=== PATIENT | female | born 1985 | race Two or more races ===

== ENCOUNTER 2018-08-21 11:43 | Observation (INO) | payer SELFPAY ==
[~2018-08-21] VITALS: Ht 161.3 cm; Wt 75.3 kg
[2018-08-21 12:27] LABS: BILIRUBIN,URINE NEGATIVE (NEG); CLARITY,URINE CLEAR; COLOR,URINE YELLOW; NITRITE,URINE NEGATIVE (NEG); PH,URINE 7.5; PROTEIN,URINE NEGATIVE (NEG-TRACE); UROBILINOGEN,URINE 0.2 mg/dL (0.2 mg/dL)
[2018-08-21 12:39] LABS: BACTERIA,URINE MODERATE /HPF (0-FEW); RBC,URINE 0 /HPF (0-2); SQUAMOUS EPITHELIAL CELL,UR MOD /LPF
[2018-08-21] MEDS ORDERED: SMZ/TMP 800/160MG TABLET. PO ONE (13:00)
== END 2018-08-21 13:14 | disposition home or self-care (01) ==
LOC: 3 SO LND 11:43
PROVIDERS: ADMIT Obstetrics & Gynecology; ATTEND Obstetrics & Gynecology
DX: O26.892 Other specified pregnancy related conditions, second trimester (principal); R10.30 Lower abdominal pain, unspecified; Z3A.20 20 weeks gestation of pregnancy
CPT/HCPCS: 81001; G0378; G0379

== ENCOUNTER 2019-01-06 10:50 | Inpatient (IN) | payer SELFPAY ==
[~2019-01-06] VITALS: Ht 161.3 cm; Wt 76.7 kg
[2019-01-06] MEDS ORDERED: IV RINGERS,LACTATED 1000ML 1,000 ML IV SCH ×2 (11:22→11:57)
[2019-01-06] MEDS ORDERED: OXYTOCIN 30 UNIT/500 ML PREMIX 500 ML IV PRN ×3 (11:30→17:00)
[2019-01-06] MEDS ORDERED: DOCUSATE SODIUM 283 MG/5 ML ENEMA. PR PRN (11:30)
[2019-01-06] MEDS ORDERED: fentaNYL PF VIAL 100 MCG/2 ML VIAL IV PRN (11:30)
[2019-01-06] MEDS ORDERED: BUTORPHANOL 2 MG/ML VIAL. IV PRN (11:30)
[2019-01-06] MEDS ORDERED: IBUPROFEN 400 MG TABLET. PO PRN ×2 (11:30→17:00)
[2019-01-06] MEDS ORDERED: LIDOCAINE 1% PF 30 ML VIAL. INJ PRN (11:30)
[2019-01-06] MEDS ORDERED: TERBUTALINE 1 MG/ML VIAL. SQ PRN (11:30)
[2019-01-06] MEDS ORDERED: CITRIC ACID/SODIUM CITRATE 30 ML SOLUTION. PO PRN (11:30)
[2019-01-06] MEDS ORDERED: OXYTOCIN PREMIX 30 UNIT/500 ML BAG. IV ONE (11:30)
[2019-01-06] MEDS ORDERED: 0.9 % SODIUM CHLORIDE 10 ML DISP.SYRIN. IV PRN ×2 (11:30→17:00)
[2019-01-06] MEDS ORDERED: OXYTOCIN 30 UNIT/500 ML PREMIX 500 ML IV ONE (11:31)
[2019-01-06 11:35] VITALS: BP 121/81
[2019-01-06 11:42] LABS: BASO % 1 % (0-3); EOS % 1 % (0-3); HEMATOCRIT 35.5 % (36.0-47.0); HEMOGLOBIN 11.5 g/dL (12.0-15.5); LYMPH # 1.7 x10^3/uL (1.0-4.8); LYMPH % 32 % (24-48); MEAN CORPUSCULAR HEMOGLOBIN 29 pg (25-35); MEAN CORPUSCULAR HGB CONC 32 g/dL (31-37); MEAN CORPUSCULAR VOLUME 89 fL (79-100); MONO # 0.5 x10^3/uL (0.0-1.1); MONO % 9 % (0-9); NEUT % 58 % (31-73); PLATELET COUNT 235 x10^3/uL (140-400); RED BLOOD COUNT 4.01 x10^6/uL (3.50-5.40); RED CELL DISTRIBUTION WIDTH 14.9 % (11.5-14.5); WHITE BLOOD COUNT 5.2 x10^3/uL (4.0-11.0)
[2019-01-06 11:42] LABS: BILIRUBIN,URINE NEGATIVE (NEG); CLARITY,URINE CLEAR; COLOR,URINE YELLOW; NITRITE,URINE NEGATIVE (NEG); PH,URINE 6.5; PROTEIN,URINE NEGATIVE (NEG-TRACE); UROBILINOGEN,URINE 0.2 mg/dL (0.2 mg/dL)
[2019-01-06] MEDS ORDERED: ROPIVacaine 0.2% IN 0.9%NACL PF 40 MG/20 ML DISP.SYRIN. EPID PRN (12:00)
[2019-01-06] MEDS ORDERED: ONDANSETRON PF 4 MG/2 ML VIAL. IV PRN (12:00)
[2019-01-06] MEDS ORDERED: fentaNYL PF VIAL 100 MCG/2 ML VIAL EPI PRN (12:00)
[2019-01-06] MEDS ORDERED: NALOXONE 0.4 MG/ML VIAL. IV PRN (12:00)
[2019-01-06] MEDS ORDERED: ePHEDrine PF IN SALINE 50 MG/5 ML DISP.SYRIN IV PRN (12:00)
[2019-01-06] MEDS ORDERED: L&D EPIDURAL SYRINGE 50 ML ONE (12:01)
[2019-01-06] MEDS: L&D EPIDURAL SYRINGE 50 ML EPID PRN ×2 (12:22→15:23)
--- NOTE | 2019-01-06 16:29 | PDOC1 ---
OB - History Hx of Present Care: Good Care Ultrasounds: Normal mid trimester US Obstetrical Complications: None Medical Complications: None Past Family/Social History * Past Medical, Surgical, Family and Obstetric Histories reviewed from chart. Rubella: Immune RPR/VDRL: Negative GBS Status: Negative HBsAG: Negative OB - Chief Complaint & HPI Date of Admission: Date of Admission: Jan 06, 2019 at 10:50 Chief Complaint/History : 2 Para: 1 EGA: 39 Reason for admission: active labor Admission Nurse Assessment Rev: Yes OB - Admission Exam Physical Exam Vitals: VS - Last 72 Hours, by Label Date Time Temp Pulse Resp B/P (MAP) Pulse Ox O2 Delivery O2 Flow Rate FiO2 01/06/19 15:23 16 97 Room Air 01/06/19 12:22 18 Room Air 01/06/19 11:35 98.8 76 18 121/81 (94) Room Air 98.8 HEENT: Normal Heart: Regular Rate Lungs: Clear Abdomen: Gravid, Non tender, Soft Extremities: Edema Reflexes: Normal Cervical Dilatation: 4cm Effacement: 75% Station: -2 Membranes: Intact Heart Rate: Normal Accelerations: Accelerations Present Decelerations: No decelerations Contractions on Admission: < 5 Minutes Apart Intensity: Firm Text A: 39 wks IUP Active labor P: Admit for labor management. MARZENA COOK Jr, MD Jan 06, 2019 16:29
--- NOTE | 2019-01-06 16:49 | PDOC ---
VAGINAL DELIVERY DATE DATE: 01/06/19 TIME: 16:48 : 2 Para: 2 EGA: 39 VAGINAL DELIVERY: VTX VACCUM ASSISTED: No PLACENTA: Spontaneous 8/9 SEX: Male WEIGHT Weight [ 6 lbs. 5 oz. ] Nuchal Cord: Yes, Times 1 Amniotic Fluid: Clear PAIN: Epidural EPISIOTOMY: No EXTENSION: No EBL 300 ml COMPLICATIONS none CONDITION pt. stable Signs of Intrauterine Infectio: None Shoulder Dystocia: No, Post. arm [id number] (Left hand compound presentation) MARZENA COOK Jr, MD Jan 06, 2019 16:49
[2019-01-06] MEDS ORDERED: BENZOCAINE 20% TOPICAL AEROSOL SPRAY 57GM CAN. TP PRN (17:00)
[2019-01-06] MEDS ORDERED: oxyCODONE/APAP 5/325 1 TAB TABLET PO PRN (17:00)
[2019-01-06] MEDS ORDERED: ZOLPIDEM 5 MG TABLET. PO PRN (17:00)
[2019-01-06] MEDS ORDERED: SIMETHICONE 80 MG TAB.CHEW PO PRN (17:00)
[2019-01-06] MEDS ORDERED: DOCUSATE SODIUM 100 MG CAPSULE. PO PRN (17:00)
[2019-01-06] MEDS ORDERED: HYDROCORTISONE 1% TOPICAL OINTMENT 30GM TUBE. TP PRN (17:00)
[2019-01-06] MEDS ORDERED: ACETAMINOPHEN 325 MG TABLET. PO PRN (17:00)
[2019-01-06] MEDS ORDERED: diphenhydrAMINE HCL 25 MG CAPSULE PO PRN (17:00)
[2019-01-06] MEDS ORDERED: PHENYLEPH/MINERAL OIL/PETROLAT RECTAL OINTMENT 28GM TUBE. RC PRN (17:00)
[2019-01-06] MEDS ORDERED: MAG HYDROX/ALUMINUM HYD/SIMETH 30 ML ORAL.SUSP PO PRN (17:00)
[2019-01-06] MEDS ORDERED: MAGNESIUM HYDROXIDE 2,400 MG/30 ML ORAL.SUSP. PO PRN (17:00)
[2019-01-06] MEDS ORDERED: MMR per PROTOCOL. MC PRN (17:00)
[2019-01-06 21:21] VITALS: BP 112/52
[2019-01-07 00:46] VITALS: BP 98/54
[2019-01-07 04:43] VITALS: BP 99/62
[2019-01-07 07:17] LABS: BASO % 1 % (0-3); EOS % 1 % (0-3); HEMATOCRIT 31.6 % (36.0-47.0); HEMOGLOBIN 10.6 g/dL (12.0-15.5); LYMPH % 26 % (24-48); MEAN CORPUSCULAR HEMOGLOBIN 30 pg (25-35); MEAN CORPUSCULAR HGB CONC 33 g/dL (31-37); MEAN CORPUSCULAR VOLUME 89 fL (79-100); MONO # 0.7 x10^3/uL (0.0-1.1); MONO % 9 % (0-9); NEUT % 65 % (31-73); PLATELET COUNT 198 x10^3/uL (140-400); RED BLOOD COUNT 3.57 x10^6/uL (3.50-5.40); RED CELL DISTRIBUTION WIDTH 14.7 % (11.5-14.5); WHITE BLOOD COUNT 7.7 x10^3/uL (4.0-11.0)
[2019-01-07] MEDS ORDERED: FERROUS SULFATE 325 MG TABLET. PO SCH (08:00)
[2019-01-07 08:30] VITALS: BP 112/74
--- NOTE | 2019-01-07 13:19 | PDOC ---
OB Progress Note Date of Service 01/07/19 Time of Evaluation 1315 Notes Pt. feeling well. No complaints. Lab Laboratory Tests Test 01/06/19 11:00 01/06/19 11:16 01/07/19 06:57 Urine Collection Type Unknown Urine Color Yellow Urine Clarity Clear Urine pH 6.5 Urine Specific [place] 1.010 Urine Protein Negative mg/dL (NEG-TRACE) Urine Glucose (UA) Negative mg/dL (NEG) Urine Ketones (Stick) Negative mg/dL (NEG) Urine Blood Negative (NEG) Urine Nitrite Negative (NEG) Urine Bilirubin Negative (NEG) Urine Urobilinogen Dipstick 0.2 mg/dL (0.2 mg/dL) Urine Leukocyte Esterase Trace (NEG) White Blood Count 5.2 x10^3/uL (4.0-11.0) 7.7 x10^3/uL (4.0-11.0) Red Blood Count 4.01 x10^6/uL (3.50-5.40) 3.57 x10^6/uL (3.50-5.40) Hemoglobin 11.5 g/dL (12.0-15.5) 10.6 g/dL (12.0-15.5) Hematocrit 35.5 % (36.0-47.0) 31.6 % (36.0-47.0) Mean Corpuscular Volume 89 fL (79-100) 89 fL (79-100) Mean Corpuscular Hemoglobin 29 pg (25-35) 30 pg (25-35) Mean Corpuscular Hemoglobin Concent 32 g/dL (31-37) 33 g/dL (31-37) Red Cell Distribution Width 14.9 % (11.5-14.5) 14.7 % (11.5-14.5) Platelet Count 235 x10^3/uL (140-400) 198 x10^3/uL (140-400) Neutrophils (%) (Auto) 58 % (31-73) 65 % (31-73) Lymphocytes (%) (Auto) 32 % (24-48) 26 % (24-48) Monocytes (%) (Auto) 9 % (0-9) 9 % (0-9) Eosinophils (%) (Auto) 1 % (0-3) 1 % (0-3) Basophils (%) (Auto) 1 % (0-3) 1 % (0-3) Neutrophils # (Auto) 3.0 x10^3uL (1.8-7.7) 5.0 x10^3uL (1.8-7.7) Lymphocytes # (Auto) 1.7 x10^3/uL (1.0-4.8) 2.0 x10^3/uL (1.0-4.8) Monocytes # (Auto) 0.5 x10^3/uL (0.0-1.1) 0.7 x10^3/uL (0.0-1.1) Eosinophils # (Auto) 0.0 x10^3/uL (0.0-0.7) 0.0 x10^3/uL (0.0-0.7) Basophils # (Auto) 0.0 x10^3/uL (0.0-0.2) 0.0 x10^3/uL (0.0-0.2) Treponema pallidum Antibody Nonreactive (Nonreactive) Laboratory Tests Test 01/07/19 06:57 White Blood Count 7.7 x10^3/uL (4.0-11.0) Red Blood Count 3.57 x10^6/uL (3.50-5.40) Hemoglobin 10.6 g/dL (12.0-15.5) Hematocrit 31.6 % (36.0-47.0) Mean Corpuscular Volume 89 fL (79-100) Mean Corpuscular Hemoglobin 30 pg (25-35) Mean Corpuscular Hemoglobin Concent 33 g/dL (31-37) Red Cell Distribution Width 14.7 % (11.5-14.5) Platelet Count 198 x10^3/uL (140-400) Neutrophils (%) (Auto) 65 % (31-73) Lymphocytes (%) (Auto) 26 % (24-48) Monocytes (%) (Auto) 9 % (0-9) Eosinophils (%) (Auto) 1 % (0-3) Basophils (%) (Auto) 1 % (0-3) Neutrophils # (Auto) 5.0 x10^3uL (1.8-7.7) Lymphocytes # (Auto) 2.0 x10^3/uL (1.0-4.8) Monocytes # (Auto) 0.7 x10^3/uL (0.0-1.1) Eosinophils # (Auto) 0.0 x10^3/uL (0.0-0.7) Basophils # (Auto) 0.0 x10^3/uL (0.0-0.2) Medications Current Medications Sodium Chloride (Normal Saline Flush) 3 ml QSHIFT PRN IV AFTER MEDS AND BLOOD DRAWS; Start 01/06/19 at 11:30 Ringer's Solution 1,000 ml @ 125 mls/hr Q8H IV Last administered on 01/06/19at 12:02; Start 01/06/19 at 11:22; Stop 01/06/19 at 21:08; Status DC Butorphanol Tartrate (Stadol) 2 mg PRN Q1HR PRN IV Severe labor pain; Start at 11:30 Fentanyl Citrate (Fentanyl 2ml Vial) 100 mcg PRN Q30MIN PRN IV Severe pain; Start 01/06/19 at 11:30 Citric Acid/ Sodium Citrate (Bicitra) 30 ml 1X PRN PRN PO DYSPEPSIA; Start at 11:30; Stop 01/07/19 at 11:29; Status DC Terbutaline Sulfate (Brethine) 0.25 mg 1X PRN PRN SQ SEE COMMENTS; Start at 11:30; Stop 01/07/19 at 11:29; Status DC Lidocaine HCl (Xylocaine 1% Pf 30ml Vial) 30 ml 1X PRN PRN INJ SEE COMMENTS; Start 01/06/19 at 11:30; Stop 01/08/19 at 11:29 Oxytocin/Sodium Chloride 500 ml @ 0 mls/hr CONT PRN IV SEE I/O RECORD; Start at 11:30 Oxytocin/Sodium Chloride 500 ml @ 0 mls/hr CONT PRN PRN IV Post delivery bleeding; Start 01/06/19 at 11:30 Ibuprofen (Motrin) 800 mg PRN Q6HRS PRN PO PAIN; Start 01/06/19 at 11:30; Stop 01/06/19 at 16:56; Status DC Docusate Sodium (Enemeez) 283 mg PRN DAILY PRN SD CONSTIPATION; Start 01/06/19 at 11:30 Oxytocin/Sodium Chloride 500 ml @ As Directed STK-MED ONCE IV ; Start 01/06/19 at 11:31; Stop 01/06/19 at 11:32; Status DC Ringer's Solution 1,000 ml @ 1,000 mls/hr Q1H IV Last administered on at 12:23; Start 01/06/19 at 11:57; Stop 01/06/19 at 12:56; Status DC Ephedrine Sulfate (ePHEDrine PF IN SALINE SYRINGE) 10 mg PRN Q2MIN PRN IV IF SBP<90; Start 01/06/19 at 12:00 Naloxone HCl (Narcan) 0.4 mg PRN Q1MIN PRN IV SEE COMMENTS; Start 01/06/19 at 12:00 Fentanyl Citrate (Fentanyl 2ml Vial) 100 mcg PRN 1X PRN EPI FOR ANESTHESIA; Start 01/06/19 at 12:00; Stop 01/07/19 at 11:59; Status DC Ropivacaine/ Fentanyl/NS 50 ml @ 14 mls/hr CONT PRN EPID PAIN Last administered on 01/06/19at 15:23; Start 01/06/19 at 12:00 Ondansetron HCl (Zofran) 4 mg PRN Q6HRS PRN IV NAUSEA/VOMITING; Start 01/06/19 at 12:00 Ropivacaine/ Sodium Chloride (ROPIVacaine 0.2% - 0.9%NACL PF) 40 mg PRN 1X PRN EPID SEE COMMENTS Last administered on 01/06/19at 12:22; Start 01/06/19 at 12:00 ; Stop 01/06/19 at 12:23; Status DC Ropivacaine/ Fentanyl/NS 50 ml @ As Directed STK-MED ONCE .ROUTE ; Start at 12:01; Stop 01/06/19 at 12:02; Status DC Sodium Chloride (Normal Saline Flush) 10 ml QSHIFT PRN IV AFTER MEDS AND BLOOD DRAWS; Start 01/06/19 at 17:00 Oxytocin/Sodium Chloride 500 ml @ 62.5 mls/hr CONT PRN IV SEE I/O RECORD; Start 01/06/19 at 17:00; Stop 01/07/19 at 00:59; Status DC Acetaminophen (Tylenol) 650 mg PRN Q6HRS PRN PO MILD PAIN / TEMP; Start at 17:00 Ibuprofen (Motrin) 800 mg PRN Q8HRS PRN PO INFLAMMATION/PAIN PREVENTION; Start 01/06/19 at 17:00 Docusate Sodium (Colace) 100 mg PRN BID PRN PO CONSTIPATION 1ST CHOICE; Start 01/06/19 at 17:00 Magnesium Hydroxide (Milk Of Magnesia) 2,400 mg PRN DAILY PRN PO CONSTIPATION 2ND CHOICE; Start 01/06/19 at 17:00 Al Hydroxide/Mg Hydroxide (Mylanta Plus Xs) 30 ml PRN Q4HRS PRN PO HEARTBURN / GAS; Start 01/06/19 at 17:00 Simethicone (Gas-X) 80 mg PRN AFTMEALHC PRN PO GAS / BLOATING; Start 01/06/19 at 17:00 Diphenhydramine HCl (Benadryl) 25 mg PRN Q6HRS PRN PO ITCHING; Start 01/06/19 at 17:00 Benzocaine (Americaine) 1 spray PRN QID PRN TP TOPICAL PAIN; Start 01/06/19 at 17:00 Phenyleph/Shark Oil/Min Oil/Petrol (Preparation H) 1 donna PRN QID PRN RC RECTAL PAIN; Start 01/06/19 at 17:00 Hydrocortisone (Cortaid) 1 donna PRN QID PRN TP PERINEAL PAIN; Start 01/06/19 at 17:00 Ferrous Sulfate (Feosol) 325 mg BIDWMEALS PO ; Start 01/07/19 at 08:00; Stop 01/07 at 11:53; Status DC Zolpidem Tartrate (Ambien) 5 mg PRN QHS PRN PO INSOMNIA, MAY REPEAT X1; Start 01/06/19 at 17:00 Info (Do NOT chart on this placeholder) 1 ea 1X PRN PRN MC SEE COMMENTS; Start 01/06/19 at 17:00 Info (Do NOT chart on this placeholder) 1 ea 1X PRN PRN MC SEE COMMENTS; Start 01/06/19 at 17:00 Oxycodone/ Acetaminophen (Percocet 5/325) 2 tab PRN Q4HRS PRN PO MODERATE PAIN , SEVERE PAIN; Start 01/06/19 at 17:00 Oxytocin/Sodium Chloride (Oxytocin Premix Infusion) 30 unit STK-MED ONCE IV ; Start 01/06/19 at 11:30; Stop 01/07/19 at 08:17; Status DC Exam Abd: soft, non tender, fundus firm Assessment PPD#1 s/p Plan of Care: Continue current Tx, Mgmt MARZENA COOK Jr, MD Jan 07, 2019 13:19
[2019-01-07 21:30] VITALS: BP 107/64
[2019-01-08 04:45] VITALS: BP 113/72
--- NOTE | 2019-01-08 07:07 | PDOC ---
GENERAL General: Patient Breast feeding the Baby. Pt likes to go home today. No Problems. VITAL SIGNS Vital Signs: Vital Signs Date Time Temp Pulse Resp B/P (MAP) Pulse Ox O2 Delivery O2 Flow Rate FiO2 01/08/19 04:45 98.6 74 12 113/72 (86) 100 Room Air 98.6 I & O I & O Intake and Output 01/08/19 07:00 Intake Total 1400 ml Balance 1400 ml Intake Oral 1400 ml Tube Feeding 0 ml # Voids 3 ALLERGIES Allergies: Allergies Coded Allergies Type Severity Reaction Last Updated Verified No Known Drug Allergies 08/21/18 No MEDS Medications: Current Medications Medications (Trade) Dose Ordered Sig/Johnnie Start Time Stop Time Status Last Admin Dose Admin Acetaminophen (Tylenol) 650 mg PRN Q6HRS PRN 01/06/19 17:00 01/07/19 21:45 650 MG Al Hydroxide/Mg Hydroxide (Mylanta Plus Xs) 30 ml PRN Q4HRS PRN 01/06/19 17:00 Benzocaine (Americaine) 1 spray PRN QID PRN 01/06/19 17:00 Butorphanol Tartrate (Stadol) 2 mg PRN Q1HR PRN 01/06/19 11:30 Citric Acid/ Sodium Citrate (Bicitra) 30 ml 1X PRN PRN 01/06/19 11:30 01/07/19 11:29 DC Diphenhydramine HCl (Benadryl) 25 mg PRN Q6HRS PRN 01/06/19 17:00 Docusate Sodium (Colace) 100 mg PRN BID PRN 01/06/19 17:00 01/07/19 17:28 100 MG Docusate Sodium (Enemeez) 283 mg PRN DAILY PRN 01/06/19 11:30 Ephedrine Sulfate (ePHEDrine PF IN SALINE SYRINGE) 10 mg PRN Q2MIN PRN 01/06/19 12:00 Fentanyl Citrate (Fentanyl 2ml Vial) 100 mcg PRN 1X PRN 01/06/19 12:00 01/07/19 11:59 DC Ferrous Sulfate (Feosol) 325 mg BIDWMEALS 01/07/19 08:00 01/07/19 11:53 DC Hydrocortisone (Cortaid) 1 donna PRN QID PRN 01/06/19 17:00 Ibuprofen (Motrin) 800 mg PRN Q8HRS PRN 01/06/19 17:00 01/07/19 17:29 800 MG Info (Do NOT chart on this placeholder) 1 ea 1X PRN PRN 01/06/19 17:00 Lidocaine HCl (Xylocaine 1% Pf 30ml Vial) 30 ml 1X PRN PRN 01/06/19 11:30 01/08/19 11:29 Magnesium Hydroxide (Milk Of Magnesia) 2,400 mg PRN DAILY PRN 01/06/19 17:00 Naloxone HCl (Narcan) 0.4 mg PRN Q1MIN PRN 01/06/19 12:00 Ondansetron HCl (Zofran) 4 mg PRN Q6HRS PRN 01/06/19 12:00 Oxycodone/ Acetaminophen (Percocet 5/325) 2 tab PRN Q4HRS PRN 01/06/19 17:00 Oxytocin/Sodium Chloride (Oxytocin Premix Infusion) 30 unit STK-MED ONCE 01/06/19 11:30 01/07/19 08:17 DC Phenyleph/Shark Oil/Min Oil/Petrol (Preparation H) 1 donna PRN QID PRN 01/06/19 17:00 Ringer's Solution 1,000 ml @ 1,000 mls/hr Q1H 01/06/19 11:57 01/06/19 12:56 DC 01/06/19 12:23 1,000 MLS/HR Ropivacaine/ Fentanyl/NS 50 ml @ As Directed STK-MED ONCE 01/06/19 12:01 01/06/19 12:02 DC Ropivacaine/ Sodium Chloride (ROPIVacaine 0.2% - 0.9%NACL PF) 40 mg PRN 1X PRN 01/06/19 12:00 01/06/19 12:23 DC 01/06/19 12:22 40 MG Simethicone (Gas-X) 80 mg PRN AFTMEALHC PRN 01/06/19 17:00 Sodium Chloride (Normal Saline Flush) 10 ml QSHIFT PRN 01/06/19 17:00 Terbutaline Sulfate (Brethine) 0.25 mg 1X PRN PRN 01/06/19 11:30 01/07/19 11:29 DC Zolpidem Tartrate (Ambien) 5 mg PRN QHS PRN 01/06/19 17:00 ASSESSMENT & PLAN A&P Vital signs stable. Pt going home today. Return to office in 6 weeks for follow up and care. CLARITZA ORTIZ MD Jan 08, 2019 07:06
[2019-01-08 11:54] VITALS: BP 110/68
[2019-01-08 17:45] VITALS: BP 118/66
== END 2019-01-08 18:00 | disposition home or self-care (01) | DRG 807 ==
LOC: INTOOBSV 10:50 → OBSVTOIN 10:50 → 3 SO LND 10:50 → OBSVTOIN 11:22 → 3 NORTH 20:59
PROVIDERS: ADMIT Specialist; ATTEND Specialist
PROC: 10E0XZZ Delivery of Products of Conception, External Approach (ICD-10-PCS; principal; 2019-01-06)
PROC: 3E0R3BZ Introduction of Anesthetic Agent into Spinal Canal, Percutaneous Approach (ICD-10-PCS; 2019-01-06)
PROC: 00HU33Z Insertion of Infusion Device into Spinal Canal, Percutaneous Approach (ICD-10-PCS; 2019-01-06)
DX: O69.81X0 Labor and delivery complicated by cord around neck, without compression, not applicable or unspecified (principal); Z37.0 Single live birth; Z3A.39 39 weeks gestation of pregnancy; O32.6XX0 Maternal care for compound presentation, not applicable or unspecified
CPT/HCPCS: 36415; 81003; 85025; 86592; 86850; 86900; 86901; G0379; J2590; J2795; J7120

== ENCOUNTER 2021-11-11 14:26 | Observation (INO) | payer SELFPAY ==
[2021-11-11 15:11] LABS: BILIRUBIN,URINE NEGATIVE (NEG); CLARITY,URINE CLEAR; COLOR,URINE AMBER; NITRITE,URINE NEGATIVE (NEG); PROTEIN,URINE NEGATIVE (NEG-TRACE); UROBILINOGEN,URINE 0.2 mg/dL (0.2 mg/dL)
[2021-11-11] MEDS ORDERED: IV RINGERS,LACTATED 1000ML 1,000 ML IV SCH (15:15)
[2021-11-11 15:18] LABS: BACTERIA,URINE FEW /HPF (0-FEW); RBC,URINE 0 /HPF (0-2); WBC,URINE OCC /HPF (0-4)
== END 2021-11-11 16:09 | disposition home or self-care (01) ==
LOC: 3 SO LND 14:26
PROVIDERS: ADMIT Obstetrics & Gynecology; ATTEND Obstetrics & Gynecology
DX: O62.9 Abnormality of forces of labor, unspecified (principal); O26.892 Other specified pregnancy related conditions, second trimester; R10.9 Unspecified abdominal pain; M79.604 Pain in right leg; Z3A.20 20 weeks gestation of pregnancy
CPT/HCPCS: 59025; 81001; G0378; G0379

== ENCOUNTER 2022-01-18 17:40 | Emergency (ER) | payer SELFPAY ==
[~2022-01-18] VITALS: Ht 160 cm; Wt 68.2 kg
[2022-01-18 18:12] LABS: BASO % 0 % (0-3); EOS % 1 % (0-3); HEMATOCRIT 33.5 % (36.0-47.0); HEMOGLOBIN 10.8 g/dL (12.0-15.5); LYMPH # 1.9 x10^3/uL (1.0-4.8); LYMPH % 30 % (24-48); MEAN CORPUSCULAR HEMOGLOBIN 28 pg (25-35); MEAN CORPUSCULAR HGB CONC 32 g/dL (31-37); MEAN CORPUSCULAR VOLUME 88 fL (79-100); MONO # 0.4 x10^3/uL (0.0-1.1); MONO % 6 % (0-9); NEUT % 63 % (31-73); PLATELET COUNT 270 x10^3/uL (140-400); RED BLOOD COUNT 3.81 x10^6/uL (3.50-5.40); RED CELL DISTRIBUTION WIDTH 14.4 % (11.5-14.5); WHITE BLOOD COUNT 6.3 x10^3/uL (4.0-11.0)
--- NOTE | 2022-01-18 18:13 | PHYS DOC ---
Past Medical History Additional Past Medical Histor: has had to have blood transfusion in the past Past Surgical History: No Surgical History General Adult EDM: Chief Complaint: SYNCOPE HPI: HPI: Patient is a 36-year-old female who presents to the emergency department today for syncope via EMS. Patient is approximately 7 months . No current or previous OB complications. She is G3, P2. Her OB is at [facility]. Patient is currently taking vitamins. She has a history of anemia. Patient reports that she became lightheaded and asked her family for help and they lowered her to the couch and while sitting on the couch she did have a syncopal episode. Her family reports that she had a loss of consciousness for 2 minutes. They deny any fall or head injury. Patient denies any abdominal pain, vaginal bleeding, vaginal discharge, nausea, vomiting, chest pain, vision changes. Patient reports that she has felt movement. Review of Systems: Review of Systems: HENT: HPI Cardiovascular: See HPI GI: See HPI : See HPI Neurologic: See HPI] Heart Score: C/O Chest Pain: No Risk Factors: Risk Factors: DM, Current or recent (<one month) smoker, HTN, HLP, family his tory of CAD, obesity. Risk Scores: Score 0 - 3: 2.5% MACE over next 6 weeks - Discharge Home Score 4 - 6: 20.3% MACE over next 6 weeks - Admit for Clinical Observation Score 7 - 10: 72.7% MACE over next 6 weeks - Early Invasive Strategies Current Medications: Current Medications Medications (Trade) Dose Ordered Sig/Johnnie Start Time Stop Time Status Last Admin Dose Admin Sodium Chloride 1,000 ml @ 1,000 mls/hr 1X ONCE 01/18/22 18:30 01/18/22 19:29 Allergies: Allergies: Allergies Coded Allergies Type Severity Reaction Last Updated Verified No Known Drug Allergies 08/21/18 No Physical Exam: PE: Constitutional: Well developed, well nourished, no acute distress, non-toxic appearance. [] HENT: Normocephalic, atraumatic, bilateral external ears normal, oropharynx moist, no oral exudates, nose normal. [] Eyes: PERRL, 4mm bilaterally, EOMI, conjunctiva normal, no discharge. [] Neck: Normal range of motion, no tenderness, supple, no stridor. [] Cardiovascular:Heart rate regular rhythm, no murmur [] Lungs & Thorax: Bilateral breath sounds clear to auscultation [] Abdomen: Bowel sounds normal, soft, no tenderness, abdomen, no masses, no pulsatile masses. [] Skin: Warm, dry, no erythema, no rash. [] Back: No tenderness,normal rom Extremities: No tenderness, no cyanosis, no clubbing, ROM intact, no edema. [] Neurologic: Alert and oriented X 3, normal motor function, normal sensory function, no focal deficits noted. [] Psychologic: Affect normal, judgement normal, mood normal. [] Current Patient Data: Labs: Laboratory Tests Test 01/18/22 17:48 01/18/22 18:15 White Blood Count 6.3 x10^3/uL Red Blood Count 3.81 x10^6/uL Hemoglobin 10.8 g/dL Hematocrit 33.5 % Mean Corpuscular Volume 88 fL Mean Corpuscular Hemoglobin 28 pg Mean Corpuscular Hemoglobin Concent 32 g/dL Red Cell Distribution Width 14.4 % Platelet Count 270 x10^3/uL Neutrophils (%) (Auto) 63 % Lymphocytes (%) (Auto) 30 % Monocytes (%) (Auto) 6 % Eosinophils (%) (Auto) 1 % Basophils (%) (Auto) 0 % Neutrophils # (Auto) 4.0 x10^3/uL Lymphocytes # (Auto) 1.9 x10^3/uL Monocytes # (Auto) 0.4 x10^3/uL Eosinophils # (Auto) 0.0 x10^3/uL Basophils # (Auto) 0.0 x10^3/uL D-Dimer (Ioana) 2.87 ug/mlFEU Sodium Level 136 mmol/L Potassium Level 3.7 mmol/L Chloride Level 101 mmol/L Carbon Dioxide Level 21 mmol/L Anion Gap 14 Blood Urea Nitrogen 6 mg/dL Creatinine 0.6 mg/dL Estimated GFR (Cockcroft-Gault) 113.1 BUN/Creatinine Ratio 10 Glucose Level 69 mg/dL Calcium Level 8.6 mg/dL Total Bilirubin 0.5 mg/dL Aspartate Amino Transf (AST/SGOT) 13 U/L Alanine Aminotransferase (ALT/SGPT) 18 U/L Alkaline Phosphatase 51 U/L Troponin I High Sensitivity 6 ng/L Total Protein 7.0 g/dL Albumin 3.2 g/dL Albumin/Globulin Ratio 0.8 Urine Collection Type Unknown Urine Color Yellow Urine Clarity Cloudy Urine pH 6.5 Urine Specific [place] 1.025 Urine Protein Negative mg/dL Urine Glucose (UA) Negative mg/dL Urine Ketones (Stick) 40 mg/dL Urine Blood Negative Urine Nitrite Negative Urine Bilirubin Negative Urine Urobilinogen Dipstick 0.2 mg/dL Urine Leukocyte Esterase Large Urine RBC 0 /HPF Urine WBC >40 /HPF Urine Squamous Epithelial Cells Many /LPF Urine Bacteria Many /HPF Urine Mucus Marked /LPF Current Medications Medications (Trade) Dose Ordered Sig/Johnnie Route PRN Reason Start Time Stop Time Status Last Admin Dose Admin Sodium Chloride 1,000 ml @ 1,000 mls/hr 1X ONCE IV 01/18/22 18:30 01/18/22 19:29 DC 01/18/22 18:31 Iohexol (Omnipaque 350 Mg/ml) 100 ml 1X ONCE IV 01/18/22 20:30 01/18/22 20:31 DC Info (CONTRAST GIVEN -- Rx MONITORING) 1 each PRN DAILY PRN MC SEE COMMENTS 01/18/22 20:15 01/20/22 20:14 Vital Signs: Vital Signs Date Time Temp Pulse Resp B/P (MAP) Pulse Ox O2 Delivery O2 Flow Rate FiO2 01/18/22 17:40 98.4 85 16 105/60 (75) 100 Room Air 98.4 EKG: EKG: EGD performed by ER staff at 1758 shows sinus rhythm with rate of 79, QTc of 437, no STEMI Dr. Perdue at 1805 [] Radiology/Procedures: Radiology/Procedures: []PROCEDURE: CT ANGIOGRAPHY CHEST EXAM: CT ANGIOGRAPHY OF THE CHEST WITH AND WITHOUT CONTRAST. HISTORY: Syncope, elevated d-dimer. TECHNIQUE: Computed tomographic angiography of the chest was performed before and after the intravenous administration of iodinated contrast. 3-D maximum intensity projections were also performed. Radiation exposure in and were discussed with Dr. Perdue. She insisted on clinical necessity. One or more of the following individualized dose reduction techniques were utilized for this examination: 1. Automated exposure control. 2. Adjustment of the mA and/or kV according to patient size. 3. Use of iterative reconstruction technique. COMPARISON: None. FINDINGS: Images of the upper abdomen reveal a 6 mm arterially enhancing focus within the right hepatic lobe on image 121, incompletely visualized at the inferior margin of the [id number]. This most likely reflects a benign lesion such as a hemangioma or vascular shunting. Bone windows reveal no suspicious lesions. Opacification of the pulmonary arterial tree is suboptimal. This limits sensitivity for small peripheral pulmonary emboli. None are seen. There is no aortic dissection or aneurysm. There are no pathologically enlarged mediastinal or axillary lymph nodes. There is no pleural or pericardial effusion. The heart is not enlarged. Lung windows reveal no infiltrates. IMPRESSION: 1. No pulmonary embolism. 2. A 6 mm arterially enhancing focus within the right hepatic lobe is incompletely assessed, but most likely reflects a benign lesion such as a hemangioma or arterial shunting in the absence of known malignancy. Electronically signed by: Petey Fernandez MD (01/18/2022 9:33 PM) [facility] DICTATED and SIGNED BY: SHO FERNANDEZ MD DATE: 01/18/22 [id number] Course & Med Decision Making: Course & Med Decision Making Pertinent Labs and Imaging studies reviewed. (See chart for details) []Patient is a 7-month-old patient who presents with a syncopal episode that lasted approximately 2 minutes. Patient did not have any injuries or head. She is not having any abdominal pain, vaginal bleeding, chest pain, intractable vomiting. Patient is having movement. Work-up in the ER consisted of blood work, EKG. heart tones were obtained. Orthostatic vital signs obtained. Patient treated with IV fluids. Patient did not have orthostatic hypotension as evidenced by vitals obtained by JEWELRY MOLD MAKER. HR: 154. Hgb 10.8, Hct 33.5, BG was 69-juice given. negative troponin, negative cmp, UTI noted-patient treated with abx. patients ddimer was elevated for adjusted , YEARS algorithm: PE cant be ruled out. I discussed with supervising physician, CT angio of chest ordered. CT angio negative for PE. VSS. She will be discharged with abx for UTI and sent to OBGYN for monitoring. I discussed with patient all findings and diagnostic testing as well as the need to follow-up with PCP for further evaluation and treatment or return to the ER if any new or worsening symptoms. Strict return precautions were also discussed at length. Patient voiced understanding and agreement with the plan. Patient is hemodynamically stable at the time of disposition. Dragon Disclaimer: Dragon Disclaimer: This electronic medical record was generated, in whole or in part, using a voice recognition dictation system. Departure Departure Impression: Primary Impression: Urinary tract infection Qualified Codes: N30.00 - Acute cystitis without hematuria Additional Impression: Syncope Qualified Codes: R55 - Syncope and collapse Disposition: HOME / SELF CARE / HOMELESS Condition: GOOD Referrals: NO PCP (PCP) Patient Instructions: - Urinary Tract Infection, Syncope Additional Instructions: You are seen in the emergency department today following a syncopal episode. Your blood sugar was mildly decreased in the emergency department, please make sure you are eating and drinking at home. Change positions slowly. Your urinalysis does show urinary tract infection which will be treated with an antibiotic. Please start and finish the antibiotic completely. Increase your fluids. You are being discharged from the emergency department to the [facility] floor to have monitoring. Please follow-up with your [facility] AND [facility]IE[facility]PERATING [facility]ICER tomorrow. Return to the emergency department if you develop syncope, chest pain, shortness of breath, abdominal pain, vaginal bleeding, high fevers refractory to treatment, intractable nausea or vomiting, falls or any other injuries. Scripts Cephalexin (KEFLEX) 500 Mg Capsule 1 CAP PO TID for 7 Days, #21 CAP 0 Refills Prov: CANDY WOODS APRN 01/18/22 CANDY WOODS APRN Jan 18, 2022 18:13
[2022-01-18 18:21] LABS: CALCIUM 8.6 mg/dL (8.5-10.1); CREATININE 0.6 mg/dL (0.6-1.0); GFR 113.1; POTASSIUM 3.7 mmol/L (3.5-5.1)
[2022-01-18 18:27] LABS: ALBUMIN 3.2 g/dL (3.4-5.0); ALBUMIN/GLOBULIN RATIO 0.8 (1.0-1.7); TOTAL BILIRUBIN 0.5 mg/dL (0.2-1.0)
[2022-01-18] MEDS ORDERED: IV NORMAL SALINE 1000ML BAG 1,000 ML IV ONE (18:30)
[2022-01-18 18:33] LABS: BILIRUBIN,URINE NEGATIVE (NEG); CLARITY,URINE CLOUDY; COLOR,URINE YELLOW; NITRITE,URINE NEGATIVE (NEG); PH,URINE 6.5 (<5.0-8.0); PROTEIN,URINE NEGATIVE (NEG-TRACE); UROBILINOGEN,URINE 0.2 mg/dL (0.2 mg/dL)
[2022-01-18 18:36] LABS: BACTERIA,URINE MANY /HPF (0-FEW); RBC,URINE 0 /HPF (0-2); WBC,URINE >40 /HPF (0-4)
[2022-01-18] MEDS ORDERED: CONTRAST GIVEN. MC PRN (20:15)
[2022-01-18] MEDS ORDERED: IOHEXOL 350 MG/ML 100 ML VIAL. IV ONE (20:30)
[2022-01-18] MEDS ORDERED: CEPHALEXIN 250 MG CAPSULE. PO ONE (21:00)
--- NOTE | 2022-01-18 21:09 | EKG ---
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
--- NOTE | 2022-01-18 21:35 | RAD ---
EXAM: CT ANGIOGRAPHY OF THE CHEST WITH AND WITHOUT CONTRAST. HISTORY: Syncope, elevated d-dimer. TECHNIQUE: Computed tomographic angiography of the chest was performed before and after the intraveno us administration of iodinated contrast. 3-D maximum intensity projections were also performed. Radia tion exposure in and were discussed with Dr. Perdue. She insisted on clinical ne cessity. One or more of the following individualized dose reduction techniques were utilized for this examination: 1. Automated exposure control. 2. Adjustment of the mA and/or kV according to patient size. 3. Use of iterative reconstruction technique. COMPARISON: None. FINDINGS: Images of the upper abdomen reveal a 6 mm arterially enhancing focus within the right hepat ic lobe on image 121, incompletely visualized at the inferior margin of the [id number]. This most likely reflects a benign lesion such as a hemangioma or vascular shunting. Bone windows reveal no blayne picious lesions. Opacification of the pulmonary arterial tree is suboptimal. This limits sensitivity for small periphe ral pulmonary emboli. None are seen. There is no aortic dissection or aneurysm. There are no pathologically enlarged mediastinal or axillary lymph nodes. There is no pleural or ricky cardial effusion. The heart is not enlarged. Lung windows reveal no infiltrates. IMPRESSION: 1. No pulmonary embolism. 2. A 6 mm arterially enhancing focus within the right hepatic lobe is incompletely assessed, but most likely reflects a benign lesion such as a hemangioma or arterial shunting in the absence of known ma lignancy. Electronically signed by: Petey Fernandez MD (01/18/2022 9:33 PM) [facility]
[2022-01-18] MEDS ORDERED: CEPH500C PO (21:44)
[2022-01-18 22:00] VITALS: BP 101/56
[2022-01-19] MEDS ORDERED: IOHEXOL 350 MG/ML 100 ML VIAL. ONE (00:55)
== END 2022-01-18 22:35 | disposition home or self-care (01) ==
LOC: ER 17:40
DX: O23.13 Infections of bladder in pregnancy, third trimester (principal); N30.90 Cystitis, unspecified without hematuria; R55 Syncope and collapse; Z3A.31 31 weeks gestation of pregnancy
CPT/HCPCS: 36415; 71275; 80053; 81001; 84484; 85025; 85379; 93005; 96360; 99285; J7030; Q9967; 87086

== ENCOUNTER 2022-01-18 22:19 | Observation (INO) | payer SELFPAY ==
[2022-01-18 20:43] VITALS: BP 94/51
[~2022-01-18 22:19] MED LIST: CEPH500C PO
[2022-01-18] MEDS ORDERED: IV RINGERS,LACTATED 1000ML 1,000 ML IV SCH (23:00)
== END 2022-01-19 00:05 | disposition home or self-care (01) ==
LOC: 3 SO LND 22:19
PROVIDERS: ADMIT Obstetrics & Gynecology; ATTEND Obstetrics & Gynecology
DX: O26.893 Other specified pregnancy related conditions, third trimester (principal); R55 Syncope and collapse; O23.43 Unspecified infection of urinary tract in pregnancy, third trimester; Z3A.30 30 weeks gestation of pregnancy
CPT/HCPCS: 59025; G0378; G0379

== ENCOUNTER 2022-03-21 23:19 | Inpatient (IN) | payer SELFPAY ==
[~2022-03-21] VITALS: Ht 154.9 cm; Wt 77.4 kg
[2022-03-21] MEDS ORDERED: IV RINGERS,LACTATED 1000ML 1,000 ML IV SCH (23:30)
[2022-03-21] MEDS ORDERED: ACETAMINOPHEN 325 MG TABLET. PO PRN (23:30)
[2022-03-21] MEDS ORDERED: TERBUTALINE 1 MG/ML VIAL. SQ PRN (23:30)
[2022-03-21] MEDS ORDERED: LIDOCAINE 1% PF 30 ML VIAL. INJ PRN (23:30)
[2022-03-21] MEDS ORDERED: BUTORPHANOL 2 MG/ML VIAL. IVP PRN ×2 (23:30)
[2022-03-21] MEDS ORDERED: OXYTOCIN 30 UNIT/500 ML PREMIX 500 ML IV PRN ×2 (23:30)
[2022-03-21] MEDS ORDERED: 0.9 % SODIUM CHLORIDE 10 ML DISP.SYRIN. IV PRN (23:30)
[2022-03-21 23:47] LABS: BASO % 0 % (0-3); EOS # 0.1 x10^3/uL (0.0-0.7); EOS % 1 % (0-3); HEMATOCRIT 36.4 % (36.0-47.0); HEMOGLOBIN 12.4 g/dL (12.0-15.5); LYMPH # 1.9 x10^3/uL (1.0-4.8); LYMPH % 31 % (24-48); MEAN CORPUSCULAR HEMOGLOBIN 30 pg (25-35); MEAN CORPUSCULAR HGB CONC 34 g/dL (31-37); MEAN CORPUSCULAR VOLUME 88 fL (79-100); MONO # 0.4 x10^3/uL (0.0-1.1); MONO % 7 % (0-9); NEUT # 3.7 x10^3/uL (1.8-7.7); NEUT % 61 % (31-73); PLATELET COUNT 277 x10^3/uL (140-400); RED BLOOD COUNT 4.15 x10^6/uL (3.50-5.40); RED CELL DISTRIBUTION WIDTH 14.6 % (11.5-14.5); WHITE BLOOD COUNT 6.2 x10^3/uL (4.0-11.0)
--- NOTE | 2022-03-22 00:27 | PDOC1 ---
ACADEMIC AFFAIRS SPECIALIST H&P Date of Admission: Date of Admission: March 21, 2022 at 23:19 History of Present Illness: [id number] presents in spontaneous labor. SVE 5cm on arrival. AMA, otherwise uncomplicated. PMH unremarkable. GBS negative. Otherwise denies complaints. Past Medical History: Cardiovascular: No pertinent hx Pulmonary: No pertinent hx GI: No pertinent hx Heme/Onc: No pertinent hx Hepatobiliary: No pertinent hx Psych: No pertinent hx Rheumatologic: No pertinent hx Infectious disease: No pertinent hx ENT: No pertinent hx Renal/: No pertinent hx Endocrine: No pertinent hx Dermatology: No pertinent hx Social History: ALCOHOL: none Allergies: Coded Allergies: No Known Drug Allergies (Unverified , 08/21/18) Physical Exam: PE: GENERAL: No apparent distress. Alert and oriented. HEENT: Head normocephalic, atraumatic. NECK: Supple LUNGS: Clear to auscultation. HEART: RRR, S1, S2 present, pulses intact ABDOMEN: Soft, positive bowel sounds. EXTREMITIES: No cyanosis or edema. NEUROLOGIC: Normal speech, normal tone PSYCHIATRIC: Normal affect, normal mood. SKIN: No ulceration. Labs: Laboratory Tests Test 03/21/22 23:29 03/21/22 23:35 White Blood Count 6.2 x10^3/uL (4.0-11.0) Red Blood Count 4.15 x10^6/uL (3.50-5.40) Hemoglobin 12.4 g/dL (12.0-15.5) Hematocrit 36.4 % (36.0-47.0) Mean Corpuscular Volume 88 fL (79-100) Mean Corpuscular Hemoglobin 30 pg (25-35) Mean Corpuscular Hemoglobin Concent 34 g/dL (31-37) Red Cell Distribution Width 14.6 % (11.5-14.5) H Platelet Count 277 x10^3/uL (140-400) Neutrophils (%) (Auto) 61 % (31-73) Lymphocytes (%) (Auto) 31 % (24-48) Monocytes (%) (Auto) 7 % (0-9) Eosinophils (%) (Auto) 1 % (0-3) Basophils (%) (Auto) 0 % (0-3) Neutrophils # (Auto) 3.7 x10^3/uL (1.8-7.7) Lymphocytes # (Auto) 1.9 x10^3/uL (1.0-4.8) Monocytes # (Auto) 0.4 x10^3/uL (0.0-1.1) Eosinophils # (Auto) 0.1 x10^3/uL (0.0-0.7) Basophils # (Auto) 0.0 x10^3/uL (0.0-0.2) SARS-CoV-2 Antigen (Rapid) Negative (NEGATIVE) Laboratory Tests 03/21/22 23:29 Laboratory Tests 03/21/22 23:29 Assessment & Plan: Admit, spontaneous labor. Expectant management. Anticipate . DLEISA RDZ CNM March 22, 2022 00:27
--- NOTE | 2022-03-22 00:31 | PDOC4 ---
VAGINAL DELIVERY DATE DATE: 03/22/22 TIME: 00:27 TIME 0011 : 3 Para: 2 EDC: March 29, 2022 EGA: 38.1 VAGINAL DELIVERY: VTX VACCUM ASSISTED: No PLACENTA: Spontaneous SEX: Female WEIGHT Weight [Pending] Nuchal Cord: No Amniotic Fluid: Clear PAIN: Natural EPISIOTOMY: No EXTENSION: No EBL 300mL CONDITION Both mother and infant are stable. Anticipate routine PP course. Perineum intact. Signs of Intrauterine Infectio: None Shoulder Dystocia: No DELISA RDZ CNM March 22, 2022 00:31
[2022-03-22] MEDS ORDERED: TDaP (BOOSTRIX) per PROTOCOL. MC PRN (00:45)
[2022-03-22] MEDS ORDERED: PHENYLEPH/MINERAL OIL/PETROLAT RECTAL OINTMENT TUBE. RC PRN (00:45)
[2022-03-22] MEDS ORDERED: ACETAMINOPHEN 325 MG TABLET. PO PRN (00:45)
[2022-03-22] MEDS ORDERED: MAGNESIUM HYDROXIDE 2,400 MG/30 ML ORAL.SUSP. PO PRN (00:45)
[2022-03-22] MEDS ORDERED: 0.9 % SODIUM CHLORIDE 10 ML DISP.SYRIN. IV PRN (00:45)
[2022-03-22] MEDS ORDERED: diphenhydrAMINE HCL 25 MG CAPSULE PO PRN (00:45)
[2022-03-22] MEDS ORDERED: MAG HYDROX/ALUMINUM HYD/SIMETH 30 ML ORAL.SUSP PO PRN (00:45)
[2022-03-22] MEDS ORDERED: HYDROCORTISONE 1% TOPICAL OINTMENT 30GM TUBE. TP PRN (00:45)
[2022-03-22] MEDS ORDERED: SIMETHICONE 80 MG TAB.CHEW PO PRN (00:45)
[2022-03-22] MEDS ORDERED: OXYTOCIN 30 UNIT/500 ML PREMIX 500 ML IV PRN (00:45)
[2022-03-22] MEDS ORDERED: MMR per PROTOCOL. MC PRN (00:45)
[2022-03-22] MEDS ORDERED: BENZOCAINE 20% TOPICAL AEROSOL SPRAY 57GM CAN. TP PRN (00:45)
[2022-03-22] MEDS: IBUPROFEN 400 MG TABLET. PO PRN ×2 (01:03→16:29)
[2022-03-22 02:45] VITALS: BP 110/72
[2022-03-22 06:24] VITALS: BP 99/61
[2022-03-22 07:35] VITALS: BP 96/58
[2022-03-22 12:30] VITALS: BP 98/53
[2022-03-22 16:30] VITALS: BP 91/50
[2022-03-22 20:47] VITALS: BP 93/56
[2022-03-23 05:08] VITALS: BP 83/48
[2022-03-23 05:35] LABS: BASO % 1 % (0-3); EOS # 0.1 x10^3/uL (0.0-0.7); EOS % 2 % (0-3); HEMATOCRIT 32.7 % (36.0-47.0); LYMPH # 2.6 x10^3/uL (1.0-4.8); LYMPH % 41 % (24-48); MEAN CORPUSCULAR HEMOGLOBIN 30 pg (25-35); MEAN CORPUSCULAR HGB CONC 34 g/dL (31-37); MEAN CORPUSCULAR VOLUME 88 fL (79-100); MONO # 0.4 x10^3/uL (0.0-1.1); MONO % 6 % (0-9); NEUT # 3.1 x10^3/uL (1.8-7.7); NEUT % 50 % (31-73); PLATELET COUNT 257 x10^3/uL (140-400); RED BLOOD COUNT 3.73 x10^6/uL (3.50-5.40); RED CELL DISTRIBUTION WIDTH 14.5 % (11.5-14.5); WHITE BLOOD COUNT 6.3 x10^3/uL (4.0-11.0)
[2022-03-23 07:50] VITALS: BP 90/51
[2022-03-23] MEDS: FERROUS SULFATE 325 MG TABLET. PO SCH ×2 (08:00→17:00)
[2022-03-23] MEDS: DOCUSATE SODIUM 100 MG CAPSULE. PO PRN ×2 (08:05→18:02)
[2022-03-23] MEDS: IBUPROFEN 400 MG TABLET. PO PRN ×3 (08:06→18:02)
[2022-03-23] MEDS: MULTIVITAMIN with MINERAL TABLET. PO SCH (08:06)
--- NOTE | 2022-03-23 10:13 | PDOC ---
MACHINE [employer] PROGRESS NOTE Date of Service: DATE: 03/23/22 TIME: 10:09 Subjective: PPD#1 s/p . Doing well. Cramping well managed with IBU. independently. Tolerates activity, diet, and voiding without difficulty. Otherwise denies complaints. Objective: Objective: FF @ U/1, scant lochia. Breasts filling, nipples intact. Vital Signs: Vital Signs Date Time Temp Pulse Resp B/P (MAP) Pulse Ox O2 Delivery O2 Flow Rate FiO2 03/22/22 07:35 98.1 67 18 96/58 (71) 98 Room Air 98.1 Vital Signs Date Time Temp Pulse Resp B/P (MAP) Pulse Ox O2 Delivery O2 Flow Rate FiO2 03/23/22 07:50 97.6 65 18 90/51 (64) 98 Room Air 97.6 Labs: Laboratory Tests Test 03/23/22 05:10 White Blood Count 6.3 x10^3/uL (4.0-11.0) Red Blood Count 3.73 x10^6/uL (3.50-5.40) Hemoglobin 11.0 g/dL (12.0-15.5) L Hematocrit 32.7 % (36.0-47.0) L Mean Corpuscular Volume 88 fL (79-100) Mean Corpuscular Hemoglobin 30 pg (25-35) Mean Corpuscular Hemoglobin Concent 34 g/dL (31-37) Red Cell Distribution Width 14.5 % (11.5-14.5) Platelet Count 257 x10^3/uL (140-400) Neutrophils (%) (Auto) 50 % (31-73) Lymphocytes (%) (Auto) 41 % (24-48) Monocytes (%) (Auto) 6 % (0-9) Eosinophils (%) (Auto) 2 % (0-3) Basophils (%) (Auto) 1 % (0-3) Neutrophils # (Auto) 3.1 x10^3/uL (1.8-7.7) Lymphocytes # (Auto) 2.6 x10^3/uL (1.0-4.8) Monocytes # (Auto) 0.4 x10^3/uL (0.0-1.1) Eosinophils # (Auto) 0.1 x10^3/uL (0.0-0.7) Basophils # (Auto) 0.0 x10^3/uL (0.0-0.2) Laboratory Tests 03/23/22 05:10 Laboratory Tests 03/23/22 05:10 Physical Exam: GENERAL: No apparent distress. Alert and oriented. HEENT: Head normocephalic, atraumatic. NECK: Supple LUNGS: Clear to auscultation. HEART: RRR, S1, S2 present, pulses intact ABDOMEN: Soft, positive bowel sounds. EXTREMITIES: No cyanosis or edema. NEUROLOGIC: Normal speech, normal tone PSYCHIATRIC: Normal affect, normal mood. SKIN: No ulceration. Assessment & Plan: PPD#1, cont. routine PP care. Anticipate d/c home tomorrow. DELISA RDZ CNM March 23, 2022 10:13
[2022-03-23 15:00] VITALS: BP 100/56
[2022-03-23 20:26] VITALS: BP 95/62
[2022-03-24 02:12] VITALS: BP 92/51
[2022-03-24] MEDS ORDERED: DOCU-109 PO (08:20)
[2022-03-24] MEDS ORDERED: IBUP-1060 PO (08:20)
[2022-03-24] MEDS: FERROUS SULFATE 325 MG TABLET. PO SCH (08:28)
[2022-03-24] MEDS: MULTIVITAMIN with MINERAL TABLET. PO SCH (08:28)
[2022-03-24 08:30] VITALS: BP 95/57
[2022-03-24] MEDS: IBUPROFEN 400 MG TABLET. PO PRN (08:32)
--- NOTE | 2022-03-24 09:37 | PDOC ---
DESIGN AND SALES CONSULTANT PROGRESS NOTE Date of Service: DATE: 03/24/22 TIME: 09:37 Subjective: Pt with good pain control. Gretchen PO. Voiding. Minimal lochia. Objective: Vital Signs: Vital Signs Date Time Temp Pulse Resp B/P (MAP) Pulse Ox O2 Delivery O2 Flow Rate FiO2 03/23/22 07:50 97.6 65 18 90/51 (64) 98 Room Air 97.6 Vital Signs Date Time Temp Pulse Resp B/P (MAP) Pulse Ox O2 Delivery O2 Flow Rate FiO2 03/24/22 02:12 98.2 62 14 92/51 (65) 98 Room Air 98.2 Physical Exam: GENERAL: No apparent distress. Alert and oriented. HEENT: Head normocephalic, atraumatic. NECK: Supple LUNGS: Clear to auscultation. HEART: RRR, S1, S2 present, pulses intact ABDOMEN: Soft, positive bowel sounds. EXTREMITIES: No cyanosis or edema. NEUROLOGIC: Normal speech, normal tone PSYCHIATRIC: Normal affect, normal mood. SKIN: No ulceration. FFNT below umb No C/C/E Assessment & Plan: A/P 36y PPD #2 s/p 1.) PP doing well 2.) Maltese speaking 3.) Hgb 12.4 -> 11.0 4.) TDAP given 01/27/22 5.) D/c home HARPREET LOPEZ MD March 24, 2022 09:37
[2022-03-24 12:30] VITALS: BP 98/57
--- NOTE | 2022-03-24 13:05 | NUR ---
Dismiised amb per pt request with baby in car set to in car. Home care instructions copies given to pt. Pt stable on feet
== END 2022-03-24 13:05 | disposition home or self-care (01) | DRG 807 ==
LOC: 3 SO LND 23:19 → OBSVTOIN 23:19 → 3 SO LND 03-22 02:40
PROVIDERS: ADMIT Registered Nurse; ATTEND Registered Nurse
PROC: 10E0XZZ Delivery of Products of Conception, External Approach (ICD-10-PCS; principal; 2022-03-22)
DX: O80 Encounter for full-term uncomplicated delivery (principal); Z37.0 Single live birth; Z20.822 Contact with and (suspected) exposure to COVID-19; Z3A.38 38 weeks gestation of pregnancy
CPT/HCPCS: 36415; 85025; 86592; 86850; 86900; 86901; 87426; G0378; J7120; U0003